=== PATIENT | female | born 1995 | race Caucasian/White ===

== ENCOUNTER → 2017-03-22 | Outpatient (CLI) | payer OTHER ==
[~2017-03-22] MED LIST: Bactrim Ds Tab1 EACH PO; Cyclobenzaprine5 MG PO; DIPH50 PO; IBUP800 PO; MULVITMIND PO; Naprosyn500 MG PO
== END ==
LOC: LAB SHORT 18:10 → LAB 18:10
DX: R10.32 Left lower quadrant pain (principal)
CPT/HCPCS: 83935

== ENCOUNTER 2017-11-02 19:28 | Emergency (ER) | payer OTHER ==
[~2017-11-02] VITALS: Ht 160 cm; Wt 63.0 kg
[~2017-11-02 19:28] MED LIST changes: -IBUP800 PO
[2017-11-02] MEDS ORDERED: IBUP800 PO (21:27)
== END 2017-11-02 21:33 | disposition home or self-care (01) ==
LOC: ER 19:28
DX: S16.1XXA Strain of muscle, fascia and tendon at neck level, initial encounter (principal); S29.012A Strain of muscle and tendon of back wall of thorax, initial encounter; Z88.0 Allergy status to penicillin; V89.2XXA Person injured in unspecified motor-vehicle accident, traffic, initial encounter
CPT/HCPCS: 71046; 72040; 99283-25

== ENCOUNTER 2018-11-29 21:59 | Emergency (ER) | payer OTHER ==
[~2018-11-29] VITALS: Ht 160 cm; Wt 63.0 kg
[~2018-11-29 21:59] MED LIST changes: +IBUP800 PO
[2018-11-29 22:26] LABS: Source, Urine Clean Catch
[2018-11-29 22:35] LABS: Bilirubin, Urine Neg (Neg); Blood, Urine 5+ (Neg); Glucose Qualitative, Urine Neg (Neg); Ketones, Urine 1+ (Neg); Leukocyte Esterase, Urine 3+ (Neg); Nitrite, Urine Neg (Neg); Protein, Urine 3+ (Neg); Urobilinogen, Urine NORM (Normal)
[2018-11-29 22:46] LABS: Appearance, Urine Cloudy (Clear); Color, Urine Yellow (P-Yellow)
[2018-11-29 22:47] LABS: Bacteria Many /hpf; Red Blood Cells, Urine 25-50 /hpf (0-2); Squamous Epithelial Cells Many /hpf (Few); White Blood Cells, Urine TNTC /hpf (0-5)
[2018-11-29] MEDS ORDERED: Bactrim Ds Tab1 EACH PO (22:51)
== END 2018-11-29 22:57 | disposition home or self-care (01) ==
LOC: ER 21:59
PROVIDERS: Physician Assistant
DX: N30.91 Cystitis, unspecified with hematuria (principal); Z88.0 Allergy status to penicillin
CPT/HCPCS: 81001

== ENCOUNTER → 2019-10-01 | Outpatient (CLI) | payer OTHER | LOC: LAB UCHC 11:29 → LAB SHORT 11:29 | PROVIDERS: Registered Nurse Community Health | DX: Z12.4 Encounter for screening for malignant neoplasm of cervix (principal) | CPT/HCPCS: 87624; 87625; G0123 ==

== ENCOUNTER → 2019-11-07 | Outpatient (CLI) | payer OTHER ==
[~2019-11-07] MED LIST changes: +PRENATAL TABLE1 EAC2 PO
[2019-11-07 19:50] LABS: Appearance, Urine Clear (Clear); Bilirubin, Urine Neg (Neg); Blood, Urine Neg (Neg); Color, Urine Yellow (P-Yellow); Glucose Qualitative, Urine Neg (Neg); Ketones, Urine Neg (Neg); Leukocyte Esterase, Urine 3+ (Neg); Nitrite, Urine Neg (Neg); Protein, Urine Neg (Neg); Urobilinogen, Urine NORM (Normal); pH, Urine 6.5 (5.0-8.0)
[2019-11-07 20:03] LABS: Bacteria Mod /hpf; Red Blood Cells, Urine 0-2 /hpf (0-2); Squamous Epithelial Cells Few /hpf (Few)
== END ==
LOC: LAB SHORT 19:18 → LAB 19:18
PROVIDERS: Registered Nurse Community Health
DX: Z34.80 Encounter for supervision of other normal pregnancy, unspecified trimester (principal)
CPT/HCPCS: 81001; 87086

== ENCOUNTER 2019-11-23 13:29 | Emergency (ER) | payer OTHER ==
[~2019-11-23] VITALS: Ht 157.5 cm; Wt 61.2 kg
[~2019-11-23 13:29] MED LIST changes: -PRENATAL TABLE1 EAC2 PO
[2019-11-23] MEDS ORDERED: PRENATAL TABLE1 EAC2 PO (13:46)
== END 2019-11-23 14:07 | disposition home or self-care (01) ==
LOC: ER 13:29
DX: M71.9 Bursopathy, unspecified (principal)
CPT/HCPCS: 99283

== ENCOUNTER → 2019-12-02 | Outpatient (CLI) | payer OTHER ==
[~2019-12-02] MED LIST changes: +PRENATAL TABLE1 EAC2 PO
[2019-12-04 02:08] LABS: CHLAMYDIA TRACHOMATIS, NAA Negative (Negative); NEISSERIA GONORRHOEAE, NAA Negative (Negative)
== END ==
LOC: LAB SHORT 19:03 → LAB 19:03
PROVIDERS: Registered Nurse Community Health
DX: Z33.1 Pregnant state, incidental (principal)
CPT/HCPCS: 87491; 87591

== ENCOUNTER 2022-08-05 16:37 | Inpatient (IN) | payer OTHER ==
[~2022-08-05] VITALS: Ht 157.5 cm; Wt 68.0 kg
[2022-08-05] VITALS (26 sets, daily range): BP systolic 96–143; BP diastolic 51–92
[2022-08-05 17:28] LABS: BASOPHILS ABSOLUTE AUTO 0.04 K/mm3 (0.00-0.23); BASOPHILS PERCENT AUTO 0 % (0-2); EOSINOPHILS ABSOLUTE AUTO 0.07 K/mm3 (0.00-0.68); EOSINOPHILS PERCENT AUTO 1 % (0-6); Hematocrit 41.3 % (33.0-51.0); Hemoglobin 14.3 g/dL (11.5-16.0); IMMATURE GRAN ABSOLUTE AUTO 0.04 K/mm3 (0.00-0.10); IMMATURE GRAN PERCENT AUTO 0 % (0-1); LYMPHOCYTES ABSOLUTE AUTO 1.21 K/mm3 (0.84-5.20); LYMPHOCYTES PERCENT AUTO 10 % (21-46); MONOCYTES ABSOLUTE AUTO 0.51 K/mm3 (0.16-1.47); MONOCYTES PERCENT AUTO 4 % (4-13); Mean Corpuscular HGB 29.5 pg (26.0-34.0); Mean Corpuscular HGB Conc 34.6 g/dL (31.5-36.5); Mean Corpuscular Volume 85 fL (80-100); Mean Platelet Volume 9.8 fL (9.1-12.4); NEUTROPHILS PERCENT AUTO 85 % (41-73); Platelet Count 249 K/mm3 (150-400); RDW Coefficient Variation 14.8 % (11.7-14.2); RDW Standard Deviation 46.3 fL (35.1-46.3); Red Blood Cell Count 4.85 M/mm3 (3.80-5.20); White Blood Cell Count 12.07 K/mm3 (4.00-11.30)
[2022-08-05 19:19] LABS: U Amphetamine Screen DETECTED; U Barbituate Screen Not Detected; U Benzodiazapine Screen Not Detected; U Buprenorphine Screen Not Detected; U Cannabinoids Screen Not Detected; U Cocaine Screen Not Detected; U Methadone Screen Not Detected; U Methamphetamine Screen DETECTED; U Opiates Screen Not Detected; U Oxycodone Screen Not Detected; U Phencyclidine Screen Not Detected; U Propoxyphene Screen Not Detected
--- NOTE | 2022-08-05 19:30 | NUR ---
LATE ENTRY- TOURNIQUET WAS REMOVED FROM L UPPER ARM AT APPROX 191. CMS, PULSES INTACT, SKIN IS RED AND INDENTED UNDER TOURNIQUET. IV IN L WRIST WNL. NO SIGNS OF INFILTRATION.
[2022-08-06 03:32] VITALS: BP 119/80
--- NOTE | 2022-08-06 07:22 | NUR ---
LATE ENTRY- L UPPER ARM REASSESSED AT 0340. REDNESS WHERE TOURNIQUET WAS IS STILL PRESENT. PULSES BILATERALLY EQUAL. NO COMPLAINT FROM PT OF TINGLING OR OTHER ABNORMAL SENSATIONS AT THIS TIME. IV WNL AT THIS TIME WELL.
[2022-08-06 07:37] VITALS: BP 90/50
[2022-08-06 09:30] LABS: Hemoglobin 12.3 g/dL (11.5-16.0); Mean Corpuscular HGB 29.4 pg (26.0-34.0); Mean Corpuscular HGB Conc 34.2 g/dL (31.5-36.5); Mean Corpuscular Volume 86 fL (80-100); Mean Platelet Volume 10.1 fL (9.1-12.4); Platelet Count 182 K/mm3 (150-400); RDW Standard Deviation 46.9 fL (35.1-46.3); Red Blood Cell Count 4.18 M/mm3 (3.80-5.20); White Blood Cell Count 10.56 K/mm3 (4.00-11.30)
[2022-08-06 11:36] VITALS: BP 105/60
--- NOTE | 2022-08-06 12:42 | NUR ---
Pt educated about no smoking policy as well as need to lock up any ingnitables including but not limited to lighters, matches, vape pens, candles, etc. Pt and visitors state understanding and report that they don't have any of those things on them.
[2022-08-06 16:27] VITALS: BP 102/63
[2022-08-06] MEDS ORDERED: IBUP800 PO (16:44)
[2022-08-06 19:55] VITALS: BP 105/77
[2022-08-06 23:21] VITALS: BP 106/70
[2022-08-07 08:07] VITALS: BP 105/67
--- NOTE | 2022-08-07 08:15 | NUR ---
talked to pt about non smoking campus, not smoking in room with cig, vap pen or thc, can have anything flammable in the room
--- NOTE | 2022-08-07 11:49 | NUR ---
[facility]PS WORKING ON SAFETY PLAN, AWARE BABY TO BE DISCHARGED
[2022-08-07 12:22] VITALS: BP 115/74
--- NOTE | 2022-08-07 17:10 | NUR ---
CPS LEAVING, NEW SAFETY PLAN IN PLACE WITH 2 PEOPLE SAFETY PEOPLE FOR MOM AND THE BABY AND 2 YEAR OLD TO BE AROUND, PT DENIES ANY QUESTIONS, ENCOURAGED TO CALL IF HAS ANY, HAS DC INSTRUCTIONS, HAS PPFU FOR 7-5. WAITING FOR [facility] TO COME, THEY ARE ON THE WAY HERE
[2022-08-07 17:15] VITALS: BP 105/72
--- NOTE | 2022-08-07 17:41 | NUR ---
[facility] TO BE HERE ANY MOMENT
--- NOTE | 2022-08-07 17:55 | NUR ---
DC HOME WITH BABY AND 2 YEAR OLD, PICKED UP BY THE PERSON THEY CALLED [employer] THAT IS ON THE SAFETY PLAN, ENCOURAGED TO CALL WITH QUESTIONS
== END 2022-08-07 17:50 | disposition home or self-care (01) | DRG 807 ==
LOC: OBS 16:37 → BC 16:37 → OBS 16:53 → BC 16:56
PROVIDERS: ADMIT Advanced Practice Midwife
PROC: 10E0XZZ Delivery of Products of Conception, External Approach (ICD-10-PCS; principal; 2022-08-05)
PROC: 00HU33Z Insertion of Infusion Device into Spinal Canal, Percutaneous Approach (ICD-10-PCS; 2022-08-05)
PROC: 3E0R3BZ Introduction of Anesthetic Agent into Spinal Canal, Percutaneous Approach (ICD-10-PCS; 2022-08-05)
PROC: 3E033VJ Introduction of Other Hormone into Peripheral Vein, Percutaneous Approach (ICD-10-PCS; 2022-08-05)
DX: O99.324 Drug use complicating childbirth (principal); Z37.0 Single live birth; Z3A.39 39 weeks gestation of pregnancy; Z88.0 Allergy status to penicillin; F15.10 Other stimulant abuse, uncomplicated; F12.90 Cannabis use, unspecified, uncomplicated; Z67.10 Type A blood, Rh positive
CPT/HCPCS: 36415; 51702; 59025; 85025; 85027; 86850; 86900; 86901; 90715; A9270; J1885; J2210; J2590; J7120

== ENCOUNTER 2025-01-11 20:08 | Inpatient (IN) | payer OTHER ==
[~2025-01-11] VITALS: Ht 157.5 cm; Wt 67.2 kg
[2025-01-11] VITALS (20 sets, daily range): BP systolic 112–139; BP diastolic 74–96
[2025-01-11 23:57] LABS: BASOPHILS ABSOLUTE AUTO 0.05 K/mm3 (0.00-0.23); BASOPHILS PERCENT AUTO 1 % (0-2); EOSINOPHILS ABSOLUTE AUTO 0.11 K/mm3 (0.00-0.68); EOSINOPHILS PERCENT AUTO 1 % (0-6); Hematocrit 36.1 % (33.0-51.0); Hemoglobin 12.1 g/dL (11.5-16.0); IMMATURE GRAN ABSOLUTE AUTO 0.05 K/mm3 (0.00-0.10); IMMATURE GRAN PERCENT AUTO 1 % (0-1); LYMPHOCYTES ABSOLUTE AUTO 1.70 K/mm3 (0.84-5.20); LYMPHOCYTES PERCENT AUTO 17 % (21-46); MONOCYTES ABSOLUTE AUTO 0.69 K/mm3 (0.16-1.47); MONOCYTES PERCENT AUTO 7 % (4-13); Mean Corpuscular HGB Conc 33.5 g/dL (31.5-36.5); Mean Corpuscular Volume 82 fL (80-100); NEUTROPHILS ABSOLUTE AUTO 7.63 K/mm3 (1.96-9.15); NEUTROPHILS PERCENT AUTO 75 % (41-73); NRBC ABSOLUTE 0.00 K/mm3 (0.00-0.02); NRBC Auto 0.0 /100 WBC (0.0-0.2); Platelet Count 185 K/mm3 (150-400); RDW Coefficient Variation 16.2 % (11.7-14.2); RDW Standard Deviation 48.1 fL (35.1-46.3)
[2025-01-12] VITALS (17 sets, daily range): BP systolic 106–139; BP diastolic 54–89
[2025-01-12] MEDS ORDERED: Tranexamic Acid 100 ML IV SCH (00:55)
[2025-01-12] MEDS ORDERED: Methylergonovine Maleate 0.2MG / ML 1ML Amp IM PRN ×2 (00:55→03:55)
[2025-01-12] MEDS ORDERED: Carboprost Tromethamine 250 MCG/ML 1ML Amp IM PRN (00:55)
[2025-01-12] MEDS ORDERED: Ondansetron HCl 2 MG / ML 2ML Vial IV PRN ×3 (00:55→03:50)
[2025-01-12] MEDS ORDERED: Citric Acid/Sodium Citrate 30 ML BTL PO ONE (00:55)
[2025-01-12] MEDS ORDERED: Metoclopramide HCl 5MG / ML 2ML Vial IV ONE (00:55)
[2025-01-12] MEDS ORDERED: OXYTOCIN/RINGER'S LACTATE 500 ML IV PRN (00:55)
[2025-01-12] MEDS ORDERED: Oxytocin 10 Unit / ML Vial IM PRN (00:55)
[2025-01-12] MEDS ORDERED: CeFAZolin Sodium 2,000 MG in NS 100 ML IV ONE (01:40)
[2025-01-12] MEDS ORDERED: HYDROmorphone HCl/Pf 1MG SYR IV PRN (02:20)
[2025-01-12] MEDS ORDERED: Albuterol 2.5 MG/3 ML VIAL INH PRN (02:25)
[2025-01-12] MEDS ORDERED: FentaNYL Citrate 50 MCG/ML 2 ML Injection IV PRN ×2 (02:25)
[2025-01-12] MEDS ORDERED: Oxytocin 10 Unit / ML Vial ONE (02:45)
[2025-01-12] MEDS ORDERED: Phenylephrine HCl 100 MCG/ML-NS 10MLSYR (1MG/10ML) ONE (02:47)
--- NOTE | 2025-01-12 03:04 | NUR ---
01/12/25 0304 KONSTANTIN BIGGS A VIABLE BABY BOY BORN BREECH AT 0253.
[2025-01-12 03:09] LABS: U Amphetamine Screen Not Detected; U Barbiturate Screen Not Detected; U Benzodiazapine Screen Not Detected; U Buprenorphine Screen Not Detected; U Cannabinoids Screen Not Detected; U Cocaine Screen Not Detected; U Methadone Screen Not Detected; U Methamphetamine Screen Not Detected; U Opiates Screen Not Detected; U Oxycodone Screen Not Detected; U Phencyclidine Screen Not Detected
[2025-01-12] MEDS ORDERED: DiphenhydrAMINE HCl 50 MG/ML 1ML Vial ONE (03:18)
[2025-01-12 03:32] LABS: PCO2 Cord - Arterial 61.3 mmHg (40-50); PO2 Cord - Arterial 13.1 mmHg (16-20); pH Cord - Arterial 7.24 (7.28-7.35)
[2025-01-12 03:35] LABS: PCO2 Cord - Venous 44.9 mmHg (40-50); PO2 Cord - Venous 24.4 mmHg (28-32); pH Umbilical Cord - Venous 7.37 (7.26-7.35)
[2025-01-12] MEDS ORDERED: OxyCODONE 5 mg/Acetamin 325 mg TABLET PO PRN (03:50)
[2025-01-12] MEDS ORDERED: Morphine Sulfate 4 MG/1 ML Injection IV PRN (03:55)
[2025-01-12] MEDS ORDERED: Magnesium Hydroxide Conc 10 ML UDC PO PRN (03:55)
[2025-01-12] MEDS ORDERED: OXYTOCIN/RINGER'S LACTATE 500 ML IV SCH (04:00)
[2025-01-12] MEDS ORDERED: Ketorolac Tromethamine 30mg Vial IV SCH (04:00)
[2025-01-12] MEDS ORDERED: Tranexamic Acid 100 ML IV PRN (04:10)
[2025-01-12 07:09] LABS: BASOPHILS ABSOLUTE AUTO 0.03 K/mm3 (0.00-0.23); BASOPHILS PERCENT AUTO 0 % (0-2); EOSINOPHILS ABSOLUTE AUTO 0.05 K/mm3 (0.00-0.68); EOSINOPHILS PERCENT AUTO 0 % (0-6); Hematocrit 29.6 % (33.0-51.0); Hemoglobin 9.8 g/dL (11.5-16.0); IMMATURE GRAN ABSOLUTE AUTO 0.05 K/mm3 (0.00-0.10); IMMATURE GRAN PERCENT AUTO 0 % (0-1); LYMPHOCYTES ABSOLUTE AUTO 1.23 K/mm3 (0.84-5.20); LYMPHOCYTES PERCENT AUTO 10 % (21-46); MONOCYTES ABSOLUTE AUTO 0.73 K/mm3 (0.16-1.47); MONOCYTES PERCENT AUTO 6 % (4-13); Mean Corpuscular HGB Conc 33.1 g/dL (31.5-36.5); Mean Corpuscular Volume 83 fL (80-100); NEUTROPHILS ABSOLUTE AUTO 10.55 K/mm3 (1.96-9.15); NEUTROPHILS PERCENT AUTO 84 % (41-73); NRBC ABSOLUTE 0.00 K/mm3 (0.00-0.02); NRBC Auto 0.0 /100 WBC (0.0-0.2); Platelet Count 159 K/mm3 (150-400); RDW Coefficient Variation 16.1 % (11.7-14.2); RDW Standard Deviation 48.7 fL (35.1-46.3)
[2025-01-12] MEDS ORDERED: Prenatal Vit/FE Fumarate/FA 1 Tab PO SCH (09:00)
[2025-01-12] MEDS ORDERED: CeFAZolin Sodium 2,000 MG in NS 100 ML IV SCH (10:30)
[2025-01-12] MEDS ORDERED: DEXTROMETHORPHAN/BENZOCAINE 1 EACH LOZENGE MT PRN (18:35)
[2025-01-13 00:13] VITALS: BP 106/61
[2025-01-13 04:07] VITALS: BP 133/85
[2025-01-13 07:14] VITALS: BP 119/68
[2025-01-13 13:08] VITALS: BP 122/71
[2025-01-13 19:36] VITALS: BP 121/83
[2025-01-13 23:44] VITALS: BP 119/62
[2025-01-14 04:21] VITALS: BP 125/82
[2025-01-14 08:07] VITALS: BP 117/72
[2025-01-14 11:36] VITALS: BP 118/70
--- NOTE | 2025-01-14 19:24 | NUR ---
01-14-25 1400 SPOKE WITH KRISTEN VAUGHN FROM [facility] REGARDING THE PLAN FOR DISCHARGE AND PT GOING TO REHAB TOMORROW. KRISTEN SAYS THAT THE PT WILL HAVE A PHONE APPT TODAY FOR THE FACILITY AND IF THAT GOES WELL AND SHE DECIDES TO PROCEED, THEN SHE WILL HAVE AN EZCORT FROM THE HOSPITAL TO [facility]UD[facility] DIRECTOR HER PRESCRIPTIONS AND THEN COURT TOMORROW AT 1300 AND THEN PROCEED TO FACILITY WITH THE BABY. IF THE BABY DOES NOT AGREE TO GO TO THE REHAB FACILITY, THEN CPS WILL MAKE ANOTHER PLAN THAT WILL INVOLVE TAKING CUSTODY OF THE BABY. I ASKED THE WORKER TO LET ME KNOW EITHER WAY SO THAT WE CAN MAKE PLANS FOR HER DISCHARGE TOMORROW, HE SAID HE WILL DO THAT. 01-14-25 1600 SAJI QURESHI IN ROOM, SHE ASKED THE PT IF SHE HAD HER PHONE APPT AND THE PT STATES THAT SHE HAS A CALL FROM AN UNKNOWN NUMBER AND SHE DID NOT ANSWER IT. SHE WAS STRONGLY ENCOURAGED TO CALL THE NUMBER BACK AND AND TO TAKE THE CALL IF THEY CALLED BACK 1630 CALL FROM GIRISH AT [facility] OFFICE SAYING THAT THE PT MISSED HER INTAKE PHONE CALL, AND SHE DID NOT THINK THE FACILITY WOULD BE OPEN TO TAKE HER CALL NOW, BUT SHE WOULD ASK. STATES THAT THERE WILL BE SOMEONE HERE IN THE MORNING TO DO WHATEVER PAPERWORK IS NEEDED FOR INTAKE AND TO CONTINUE WITH PLAN FOR MOM AND BABY TO GO TOGETHER TO [place] IF [facility] AGREES. WHEN [facility] WAS ASKED BY RN, SHE SAYS THAT SHE WAS ABLE TO SPEAK TO THE FACILITY AND EVERYTHING IS SET HER PHONE INTAKE INTERVIEW
[2025-01-14 20:09] VITALS: BP 112/80
[2025-01-14 23:29] VITALS: BP 110/66
[2025-01-15 04:53] VITALS: BP 117/74
[2025-01-15 09:58] VITALS: BP 134/75
--- NOTE | 2025-01-15 11:30 | NUR ---
DISCHARGE: PT DISCHARGED TO [facility] WITH HER TO BE ESCORTED TO [facility]. GIRISH IS THE [facility] PERSON TRANSPORTING PT THIS MORNING. PT ESCORTED TO [facility] VEHICLE BY [facility] REHABILITATION COUNSELLOR, AND WILLIAM DUMONT WITH ALL BELONINGS. PT RECEIVED BOTH VERBAL AND WRITTEN DISCHARGE INSTRUCTIONS AND VERBALIZES UNDERSTANDING. PT TO CALL HER OB OFFICE AND DEIRDRE COREAS TO SCHEDULE FOLLOW UP APPTS FOR HERSELF AND HER . [facility] GOING WITH PT TO [facility] HER RX BEFORE HEADING TO [place]. PLACED IN CAR REAR FACING FOR TRANSPORT TO [place].
== END 2025-01-15 11:06 | disposition home or self-care (01) | DRG 787 ==
LOC: OBS 20:08 → BC 20:10 → OBS 23:47 → BC 23:48
PROVIDERS: Obstetrics & Gynecology; Registered Nurse Community Health; ADMIT Advanced Practice Midwife
PROC: 10D00Z1 Extraction of Products of Conception, Low, Open Approach (ICD-10-PCS; principal; 2025-01-12 07:30)
DX: O32.1XX0 Maternal care for breech presentation, not applicable or unspecified (principal); F15.20 Other stimulant dependence, uncomplicated; O99.324 Drug use complicating childbirth; O48.0 Post-term pregnancy; Z3A.40 40 weeks gestation of pregnancy; Z37.0 Single live birth
CPT/HCPCS: 36415; 81003; 82803; 85025; 86850; 86900; 86901; 86923; 90707; 99214; A9270; J0690; J1200; J1885; J2371; J2590; J2765; J3010; J7120